=== PATIENT | male | born 1990 | race Caucasian/White ===

== ENCOUNTER 2021-04-29 19:20 | Emergency (ER) | payer OTHER ==
[~2021-04-29] VITALS: Ht 175.3 cm; Wt 99.8 kg
[2021-04-29 19:20] VITALS: BP 132/73
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
[2021-04-29 22:12] VITALS: BP 132/73
--- NOTE | 2021-04-29 22:12 | NUR ---
PATIENT BIB [facility]. PATIENT EXAMINED BY DR. HARTLEY. PATIENT MEDICALLY CLEARED AND RELEASED IN CUSTODY IN STABLE CONDITION. ORIGINAL PRE-BOOK FORM GIVEN TO OFFICER. A/OX4, VSS, AMBULATORY, UNLABORED BREATHING, AND CALM DEMEANOR. PT SEEN BY MD, NO NURSING INTERVENTIONS NEEDED.
== END 2021-04-29 22:12 ==
LOC: MED 19:20
DX: S00.81XA Abrasion of other part of head, initial encounter (principal); Z02.89 Encounter for other administrative examinations; R00.0 Tachycardia, unspecified; V89.2XXA Person injured in unspecified motor-vehicle accident, traffic, initial encounter; Y93.89 Activity, other specified; Y92.410 Unspecified street and highway as the place of occurrence of the external cause; Y99.8 Other external cause status
CPT/HCPCS: 70450; 71045; 99284